=== PATIENT | male | born 1950 | race Caucasian/White ===

== ENCOUNTER 2017-03-19 11:12 | Outpatient (CLI) | payer OTHER ==
[~2017-03-19 11:12] MED LIST: LUPRON DEPOT7.5 MG; TAMS0.4C; ZOMETA 4 M4 MG/100 M
== END 2017-03-19 14:44 | disposition home or self-care (01) ==
LOC: RAD 11:12
DX: M99.03 Segmental and somatic dysfunction of lumbar region (principal); M99.01 Segmental and somatic dysfunction of cervical region; M54.2 Cervicalgia

== ENCOUNTER 2017-04-19 08:15 | Outpatient (CLI) | payer OTHER ==
[~2017-04-19 08:15] MED LIST changes: -METFORMIN HCL850 MG
[2017-04-20] MEDS ORDERED: METFORMIN HCL850 MG (14:34)
== END 2017-04-19 08:21 | disposition home or self-care (01) ==
LOC: RAD 08:15
DX: J45.998 Other asthma (principal); J32.1 Chronic frontal sinusitis

== ENCOUNTER → 2017-04-19 | Outpatient (CLI) | payer OTHER ==
[~2017-04-19] MED LIST changes: +METFORMIN HCL850 MG
== END | disposition home or self-care (01) ==
LOC: LAB 07:32
DX: J11.82 Influenza due to unidentified influenza virus with myocarditis (principal); J45.998 Other asthma; D68.8 Other specified coagulation defects; N39.0 Urinary tract infection, site not specified; D64.89 Other specified anemias; E11.69 Type 2 diabetes mellitus with other specified complication

== ENCOUNTER → 2017-04-20 | Emergency (ER) | payer OTHER ==
[~2017-04-20] VITALS: Ht 182.9 cm; Wt 96.2 kg
[~2017-04-20] MED LIST changes: +METFORMIN HCL850 MG
== END | disposition home or self-care (01) ==
LOC: ER 13:46
DX: J11.1 Influenza due to unidentified influenza virus with other respiratory manifestations (principal); D64.89 Other specified anemias; C61 Malignant neoplasm of prostate; C79.51 Secondary malignant neoplasm of bone; Z92.21 Personal history of antineoplastic chemotherapy